=== PATIENT | female | born 1995 | race Caucasian/White ===

== ENCOUNTER → 2022-01-17 | Outpatient (CLI) | payer BC ==
[2022-01-17 13:40] LABS: BASOPHILS ABSOLUTE AUTO 0.05 K/mm3 (0.00-0.23); BASOPHILS PERCENT AUTO 0 % (0-2); EOSINOPHILS ABSOLUTE AUTO 0.08 K/mm3 (0.00-0.68); EOSINOPHILS PERCENT AUTO 1 % (0-6); Hematocrit 32.6 % (33.0-51.0); IMMATURE GRAN ABSOLUTE AUTO 0.04 K/mm3 (0.00-0.10); IMMATURE GRAN PERCENT AUTO 0 % (0-1); LYMPHOCYTES ABSOLUTE AUTO 1.08 K/mm3 (0.84-5.20); LYMPHOCYTES PERCENT AUTO 10 % (21-46); MONOCYTES ABSOLUTE AUTO 0.55 K/mm3 (0.16-1.47); MONOCYTES PERCENT AUTO 5 % (4-13); Mean Corpuscular HGB 32.4 pg (26.0-34.0); Mean Corpuscular HGB Conc 33.7 g/dL (31.5-36.5); Mean Corpuscular Volume 96 fL (80-100); Mean Platelet Volume 10.4 fL (9.1-12.4); NEUTROPHILS ABSOLUTE AUTO 9.52 K/mm3 (1.96-9.15); NEUTROPHILS PERCENT AUTO 84 % (41-73); Platelet Count 217 K/mm3 (150-400); RDW Coefficient Variation 11.9 % (11.7-14.2); RDW Standard Deviation 41.9 fL (35.1-46.3); Red Blood Cell Count 3.39 M/mm3 (3.80-5.20); White Blood Cell Count 11.32 K/mm3 (4.00-11.30)
== END ==
LOC: LAB SHORT 10:05
PROVIDERS: Obstetrics & Gynecology
DX: Z34.03 Encounter for supervision of normal first pregnancy, third trimester (principal); Z3A.28 28 weeks gestation of pregnancy
CPT/HCPCS: 82950; 85025

== ENCOUNTER 2022-04-08 05:54 | Inpatient (IN) | payer OTHER ==
[~2022-04-08] VITALS: Ht 175.3 cm; Wt 80.4 kg
[2022-04-08] MEDS ORDERED: SERT25 PO (07:06)
[2022-04-08] MEDS ORDERED: ACYC400 PO (07:40)
[2022-04-08] MEDS ORDERED: PROM25 PO (07:41)
[2022-04-08] MEDS ORDERED: ONE-A-DAY PREN1 EAC1 PO (07:41)
[2022-04-08 08:44] LABS: BASOPHILS ABSOLUTE AUTO 0.05 K/mm3 (0.00-0.23); BASOPHILS PERCENT AUTO 0 % (0-2); EOSINOPHILS ABSOLUTE AUTO 0.11 K/mm3 (0.00-0.68); EOSINOPHILS PERCENT AUTO 1 % (0-6); Hematocrit 34.1 % (33.0-51.0); Hemoglobin 10.9 g/dL (11.5-16.0); IMMATURE GRAN PERCENT AUTO 1 % (0-1); LYMPHOCYTES ABSOLUTE AUTO 2.04 K/mm3 (0.84-5.20); LYMPHOCYTES PERCENT AUTO 16 % (21-46); MONOCYTES ABSOLUTE AUTO 0.97 K/mm3 (0.16-1.47); MONOCYTES PERCENT AUTO 8 % (4-13); Mean Corpuscular HGB 28.8 pg (26.0-34.0); Mean Corpuscular Volume 90 fL (80-100); Mean Platelet Volume 10.3 fL (9.1-12.4); NEUTROPHILS ABSOLUTE AUTO 9.29 K/mm3 (1.96-9.15); NEUTROPHILS PERCENT AUTO 74 % (41-73); Platelet Count 263 K/mm3 (150-400); RDW Coefficient Variation 12.9 % (11.7-14.2); RDW Standard Deviation 42.2 fL (35.1-46.3); Red Blood Cell Count 3.78 M/mm3 (3.80-5.20); White Blood Cell Count 12.56 K/mm3 (4.00-11.30)
[2022-04-09 08:11] LABS: BASOPHILS ABSOLUTE AUTO 0.04 K/mm3 (0.00-0.23); BASOPHILS PERCENT AUTO 0 % (0-2); EOSINOPHILS PERCENT AUTO 1 % (0-6); Hematocrit 32.4 % (33.0-51.0); Hemoglobin 10.6 g/dL (11.5-16.0); IMMATURE GRAN ABSOLUTE AUTO 0.11 K/mm3 (0.00-0.10); IMMATURE GRAN PERCENT AUTO 1 % (0-1); LYMPHOCYTES PERCENT AUTO 10 % (21-46); MONOCYTES ABSOLUTE AUTO 1.24 K/mm3 (0.16-1.47); MONOCYTES PERCENT AUTO 8 % (4-13); Mean Corpuscular HGB Conc 32.7 g/dL (31.5-36.5); Mean Corpuscular Volume 89 fL (80-100); Mean Platelet Volume 10.2 fL (9.1-12.4); NEUTROPHILS PERCENT AUTO 81 % (41-73); Platelet Count 223 K/mm3 (150-400); RDW Coefficient Variation 12.8 % (11.7-14.2); RDW Standard Deviation 41.6 fL (35.1-46.3); Red Blood Cell Count 3.65 M/mm3 (3.80-5.20); White Blood Cell Count 16.59 K/mm3 (4.00-11.30)
--- NOTE | 2022-04-10 08:34 | NUR ---
PATIENT SLEEPING BABY IN NURSERY
== END 2022-04-10 11:30 | disposition home or self-care (01) | DRG 785 ==
LOC: OBS 05:54 → BC 05:56 → OBS 06:02 → BC 06:03
PROVIDERS: ADMIT Obstetrics & Gynecology
PROC: 10D00Z1 Extraction of Products of Conception, Low, Open Approach (ICD-10-PCS; principal; 2022-04-09)
PROC: 0UT70ZZ Resection of Bilateral Fallopian Tubes, Open Approach (ICD-10-PCS; 2022-04-09)
DX: O34.211 Maternal care for low transverse scar from previous cesarean delivery (principal); O48.0 Post-term pregnancy; Z3A.40 40 weeks gestation of pregnancy; Z37.0 Single live birth; Z79.2 Long term (current) use of antibiotics; Z67.40 Type O blood, Rh positive; Z79.899 Other long term (current) drug therapy
CPT/HCPCS: 36415; 51702; 85025; 86850; 86900; 86901; 90471; 90707; A9270; J1885; J2001; J2405; J2590; J3010; J7120

== ENCOUNTER 2023-12-02 06:10 | Day surgery (SDC) | payer OTHER ==
[~2023-12-02] VITALS: Ht 175.3 cm; Wt 71.3 kg
[~2023-12-02 06:10] MED LIST: ACYC400 PO; ONE-A-DAY PREN1 EAC1 PO; PROM25 PO; SERT25 PO
[2023-12-02] MEDS ORDERED: IBU800 M1 PO (06:38)
[2023-12-02] MEDS ORDERED: DIFLUPREDNATE5 ML OP (06:38)
[2023-12-02] MEDS ORDERED: Lactated Ringer's 1,000 ML IV ONE (06:51)
[2023-12-02] MEDS ORDERED: EPINEPhrine HCl 1 MG/ML 1ML Amp ONE (06:54)
[2023-12-02] MEDS ORDERED: Ropivacaine 0.5% HCl/Pf 5 MG/ML 20ML VIAL ONE (06:55)
[2023-12-02] MEDS ORDERED: propofoL 20 ML IV ONE (07:01)
[2023-12-02] MEDS ORDERED: FentaNYL Citrate 50 MCG/ML 2 ML Injection ONE (07:01)
[2023-12-02] MEDS ORDERED: Rocuronium Bromide 10 MG/ML 5ML Injection IV ONE (07:01)
[2023-12-02] MEDS ORDERED: Ondansetron HCl 2 MG / ML 2ML Vial ONE (07:01)
[2023-12-02] MEDS ORDERED: Midazolam HCl 1MG / ML 2ML Vial ONE (07:01)
[2023-12-02] MEDS ORDERED: Phenylephrine HCl 100 MCG/ML-NS 10MLSYR (1MG/10ML) ONE (07:42)
[2023-12-02] MEDS ORDERED: Dexamethasone Sod Phos 10 MG/ML 1ML VIAL ONE (07:48)
[2023-12-02] MEDS ORDERED: Sugammadex Sodium 200 MG/2ML SDV (100 MG/ML) ONE (07:55)
[2023-12-02] MEDS ORDERED: HYDROmorphone HCl/Pf 1MG SYR ONE (07:58)
[2023-12-02] MEDS ORDERED: ePHEDrine Sulfate 50 MG/ML 1ML Injection ONE (08:01)
--- NOTE | 2023-12-02 08:22 | NUR ---
12/02/23 0822 Concepción Thurston 14FR CATH INSERTED AT 0750 REMOVED AT 0816 30CC YELLOW COLORED URINE
--- NOTE | 2023-12-02 08:30 | NUR ---
12/02/23 0830 JOHN ELIZONDO PT HAVING DISCOMFORT IN SHOULDERS. LAID BED FLAT AND APPLIED HEAT TO SHOULDERS/UPPER CHEST. STATES FEELING BETTER.
[2023-12-02] MEDS ORDERED: OxyCODONE 5 mg/Acetamin 325 mg TABLET ONE (08:52)
[2023-12-02 08:54] VITALS: BP 103/55
--- NOTE | 2023-12-02 08:56 | NUR ---
12/02/23 0856 Kathy Corado PATIENT GIVEN PERCOCET 5/325MG PO FOR ABDOMINAL PAIN RATED AT 6/10
== END 2023-12-02 09:20 | disposition home or self-care (01) ==
LOC: ORSCSDS 06:10
PROVIDERS: Obstetrics & Gynecology
PROC: 0UT74ZZ Resection of Bilateral Fallopian Tubes, Percutaneous Endoscopic Approach (ICD-10-PCS; principal; 2023-12-02 07:30)
DX: Z30.2 Encounter for sterilization (principal); B00.9 Herpesviral infection, unspecified; Z79.85 Long-term (current) use of injectable non-insulin antidiabetic drugs; Z79.899 Other long term (current) drug therapy
CPT/HCPCS: A9270; J0171; J1100; J1170; J2250; J2371; J2405; J2704; J2795; J3010

== ENCOUNTER → 2024-07-28 | Outpatient (CLI) | payer OTHER ==
[~2024-07-28] MED LIST changes: +DIFLUPREDNATE5 ML OP; +IBU800 M1 PO
== END ==
LOC: LAB SHORT 09:24 → LAB 09:24
DX: N39.0 Urinary tract infection, site not specified (principal)
CPT/HCPCS: 87086